=== PATIENT | female | born 2000 | race American Indian/Alaskan Native ===

== ENCOUNTER 2020-06-08 02:18 | Emergency (ER) | payer SELFPAY ==
[2020-06-08] MEDS ORDERED: ONDANSETRON 4 MG/2 ML INJ IV ONE (02:24)
[2020-06-08] MEDS ORDERED: MORPHINE 4 MG/1 ML INJ IV ONE (02:24)
--- NOTE | 2020-06-08 02:26 | Event Note ---
ED Screening Note Date of service: 06/08/20 Time: 02:25 ED Screening Note: Complains of sudden onset of right lower quadrant pain radiating to right flank Denies history of kidney stones Pain 9/10 in severity + Vomiting This initial assessment/diagnostic orders/clinical plan/treatment(s) is/are subject to change based on patients health status, clinical progression and re- assessment by fellow clinical providers in the ED. Further treatment and workup at subsequent clinical providers discretion. Patient/guardian urged not to elope from the ED as their condition may be serious if not clinically assessed and managed. Initial orders include: Labs CT
[2020-06-08 02:52] LABS: Basophils % (Auto) 0.2 % (0.0-1.8); Eosinophils % (Auto) 0.2 % (0.0-4.3); Hematocrit 37.1 % (30.3-42.9); Hemoglobin 12.2 gm/dl (10.1-14.3); Lymphocytes # (Auto) 0.9 K/mm3 (1.2-5.4); Lymphocytes % (Auto) 9.2 % (13.4-35.0); Mean Corpuscular HGB Conc 33 % (30-34); Mean Corpuscular Volume 88 fl (79-97); Monocytes # (Auto) 0.3 K/mm3 (0.0-0.8); Monocytes % (Auto) 3.2 % (0.0-7.3); Platelet Count 235 K/mm3 (140-440); Red Blood Count 4.21 M/mm3 (3.65-5.03); Red Cell Distribution Width 14.3 % (13.2-15.2)
[2020-06-08 03:00] LABS: Bacteria,Urine 1+ /HPF (Negative); Bilirubin,Urine NEG (Negative); Blood,Urine NEG (Negative); Color,Urine Yellow (Yellow); Mucus,Urine 3+ /HPF; Urobilinogen,Urine < 2.0 mg/dL (<2.0)
[2020-06-08 03:12] LABS: Alanine Aminotransferase 10 units/L (7-56); Albumin 4.6 g/dL (3.9-5); Blood Urea Nitrogen 6 mg/dL (7-17); Calcium 9.4 mg/dL (8.4-10.2); Hemolysis Index 29
[2020-06-08 03:16] LABS: BUN/Creatinine Ratio 9
--- NOTE | 2020-06-08 04:17 | Cat Scan Report ---
CT ABDOMEN AND PELVIS WITH CONTRAST HISTORY: acute RLQ pain radiating to R flank. COMPARISON: None. TECHNIQUE: CT images of the abdomen and pelvis were obtained following administration of intravenous contrast. All CT scans at this location are performed using CT dose reduction for ALARA by means of automated exposure control. CONTRAST: 100 ml of intravenous contrast administered. FINDINGS: Lungs/bones: Lung bases are clear. No acute osseous abnormality identified. Abdomen/pelvis: There is a 1 mm stone in the distal right ureter at the UVJ with mild right-sided hy dronephrosis and perinephric/periureteral inflammatory stranding. There is a simple cyst in the left kidney. The liver, gallbladder, spleen, pancreas, adrenals, and proximal GI tract appear unremarkable. The urinary bladder and reproductive organs are unremarkable with no pelvic free fluid. No acute colo sri abnormality identified. Appendix and terminal ileum are normal. IMPRESSION: 1. 1 mm stone at the right UVJ with mild hydronephrosis and inflammatory change. Signer Name: Sotero Benitez MD Signed: 06/08/2020 4:12 AM Workstation Name: [id number]
[2020-06-08] MEDS ORDERED: cefTRIAXone/NS 1 GM/50 ML 1 GM/50 ML BAG IV ONE (04:26)
--- NOTE | 2020-06-08 04:27 | Emergency Department Report ---
ED General Adult HPI - General Chief complaint: Abdominal Pain Stated complaint: SEVEN, PAIN RT SIDE Time Seen by Provider: 06/08/20 02:23 Source: patient Mode of arrival: Ambulatory Limitations: No Limitations - History of Present Illness Initial comments: 20-year-old -Al[place] female patient presents with complaints of sudden onset of right flank and right sided abdominal pain x today. She rates her pain as a 10/10 in severity and describes it as a stabbing sharp pain. She denies any prior medical history, fever/chills/sweats, diarrhea, melena, hematochezia, chest pain, or shortness of breath. She does admit to some dysuria without hematuria and urinary frequency. +vomiting. Patient states she has been having recurrent UTIs recently. She denies any vaginal discharge or dyspareunia. Severity scale (0 -10): 10 - Related Data Previous Rx's Medication Instructions Recorded Last Taken Type Acetaminophen/Codeine [Tylenol 1 tab PO Q6H PRN #10 tab 06/08/20 Unknown Rx /Codeine # 3 tab] Ciprofloxacin HCl [Ciprofloxacin 500 mg PO Q12HR 7 Days #14 tab 06/08/20 Unknown Rx TAB] Promethazine HCl [Promethazine TAB] 12.5 mg PO Q6H PRN #12 tab 06/08/20 Unknown Rx Tamsulosin [Flomax] 0.4 mg PO QDAY 5 Days #5 cap 06/08/20 Unknown Rx Allergies Allergy/AdvReac Type Severity Reaction Status Date / Time No Known Allergies Allergy Unverified 06/08/20 02:29 ED Review of Systems ROS: Stated complaint: SEVEN, PAIN RT SIDE Other details as noted in HPI Constitutional: denies: chills, diaphoresis, fever, malaise, weakness ENT: denies: epistaxis Respiratory: denies: cough Cardiovascular: denies: chest pain Gastrointestinal: abdominal pain, nausea, vomiting. denies: diarrhea, constipation, hematemesis, melena, hematochezia Genitourinary: dysuria, frequency. denies: urgency, hematuria, discharge, dyspareunia Neurological: denies: headache Hematological/Lymphatic: denies: easy bleeding, swollen glands ED Past Medical Hx - Medications Home Medications: Home Medications Medication Instructions Recorded Confirmed Last Taken Type Acetaminophen/Codeine [Tylenol 1 tab PO Q6H PRN #10 tab 06/08/20 Unknown Rx /Codeine # 3 tab] Ciprofloxacin HCl [Ciprofloxacin 500 mg PO Q12HR 7 Days #14 tab 06/08/20 Unknown Rx TAB] Promethazine HCl [Promethazine TAB] 12.5 mg PO Q6H PRN #12 tab 06/08/20 Unknown Rx Tamsulosin [Flomax] 0.4 mg PO QDAY 5 Days #5 cap 06/08/20 Unknown Rx ED Physical Exam - General Limitations: No Limitations General appearance: alert, in no apparent distress, obese - Head Head exam: Present: atraumatic, normocephalic - Eye Eye exam: Present: normal appearance. Absent: scleral icterus - ENT ENT exam: Present: mucous membranes moist - Neck Neck exam: Present: normal inspection - Respiratory Respiratory exam: Present: normal lung sounds bilaterally. Absent: respiratory distress - Cardiovascular Cardiovascular Exam: Present: regular rate, normal rhythm. Absent: systolic murmur, diastolic murmur, rubs, gallop - GI/Abdominal GI/Abdominal exam: Present: soft, tenderness (Right lower quadrant), normal bowel sounds. Absent: distended, guarding, rebound, rigid - Back Exam Back exam: Present: CVA tenderness (R) - Neurological Exam Neurological exam: Present: alert, oriented X3 - Psychiatric Psychiatric exam: Present: normal affect, normal mood - Skin Skin exam: Present: warm, dry, intact, normal color. Absent: rash, cyanosis, d iaphoretic, erythema, ecchymosis ED Course Vital Signs 06/08/20 02:24 Temperature 98.4 F Pulse Rate 99 H Respiratory 18 Rate Blood Pressure 138/78 [Right] O2 Sat by Pulse 100 Oximetry ED Medical Decision Making - Lab Data Result diagrams: 06/08/20 02:35 06/08/20 02:35 - Medical Decision Making 20-year-old -Algerian female patient presents with complaints of sudden onset of right flank and right sided abdominal pain x today. She rates her pain as a 10/10 in severity and describes it as a stabbing sharp pain. She denies a [place] prior medical history, fever/chills/sweats, diarrhea, melena, hematochezia, chest pain, or shortness of breath. She does admit to some dysuria without hematuria and urinary frequency. Patient states she has been having recurrent UTIs recently. She denies any vaginal discharge or dyspareunia. CT abdomen shows 1 mm kidney stone. UA shows 7 WBCs patient given Rocephin 1 g IV for infected kidney stone. No significant abnormalities noted on CBC or CMP. Her pain is controlled and she is well-appearing. Patient stable for discharge home. Recommend follow-up with urology. Prescription for Flomax, Cipro, Zofran, and Tylenol 3 given. Strict return precautions were discussed in detail with patient who verbalizes understanding. Critical care attestation.: If time is entered above; I have spent that time in minutes in the direct care of this critically ill patient, excluding procedure time. ED Disposition Clinical Impression: Kidney stone on right side UTI (urinary tract infection) Qualifiers: Urinary tract infection type: acute cystitis Hematuria presence: without hematuria Qualified Code(s): N30.00 - Acute cystitis without hematuria Disposition: TO HOME OR SELFCARE Is pt being admited?: No Condition: Stable Instructions: Abdominal Pain (ED), Kidney Stones, Urinary Tract Infection, Adult Prescriptions: Ciprofloxacin HCl [Ciprofloxacin TAB] 500 mg PO Q12HR 7 Days #14 tab Tamsulosin [Flomax] 0.4 mg PO QDAY 5 Days #5 cap Promethazine HCl [Promethazine TAB] 12.5 mg PO Q6H PRN #12 tab PRN Reason: Nausea Acetaminophen/Codeine [Tylenol /Codeine # 3 tab] 1 tab PO Q6H PRN #10 tab PRN Reason: Pain , Severe (7-10) Referrals: JACI GIRON MD [Staff Physician] - 3-5 Days
[2020-06-08 05:12] VITALS: BP 110/80
== END 2020-06-08 05:11 | disposition home or self-care (01) ==
LOC: ED 02:18
DX: N39.0 Urinary tract infection, site not specified (principal); N20.0 Calculus of kidney; Z79.899 Other long term (current) drug therapy
CPT/HCPCS: 36415; 74177; 80053; 81001; 83690; 84703; 85025; 87086; 96365; 96375; 99284; J0696; J2405; Q9967